=== PATIENT | female | born 1955 ===

== ENCOUNTER → 2018-12-07 | Outpatient (REF) | payer OTHER ==
[~2018-12-07] MED LIST: ACET65TA OR; DEPA250T3 OR; DIVALPROEX PO; LEVO25TA2 OR; LEVO50TA2 OR; OMEP20TA7 OR; PRAV20TA2 OR; VICO5TAB OR; VICO5TAB PO; epitol PO
== END ==
LOC: M LAB LCGH 12:18
PROVIDERS: ATTEND Physician Assistant
DX: L85.9 Epidermal thickening, unspecified (principal)